=== PATIENT | male | born 1955 | race Caucasian/White ===

== ENCOUNTER 2022-03-29 15:47 | Emergency (ER) | payer MEDICARE, BC, SELFPAY ==
[2022-03-29] VITALS (9 sets, daily range): BP systolic 111–150; BP diastolic 71–99; PULSE 72–84; RESP 12–20; TEMP 36.2; O2SAT 93–96; BMI 26.6
--- NOTE | 2022-03-29 16:07 | CRLHL7_ITS ---
For Patients: As a result of the Century Cures Act, medical imaging exams and procedure reports are released immediately into your electronic medical record. You may view this report before your referring provider. If you have questions, please contact your health care provider. INDICATION: Chest pain. TECHNIQUE: Chest 2 views. COMPARISON: None. FINDINGS: Cardiovascular and mediastinum: Heart size and vasculature are normal in caliber and appearance. Lungs and pleural spaces: The lungs are clear. No pleural effusion or pneumothorax. Bones and soft tissues: Mild multilevel thoracic spondylosis. No acute findings. IMPRESSION: No evidence of an acute pulmonary process. Dictated by Gilmer Hargrove MD @ 03/29/2022 5:05:13 PM (Electronically Signed)
--- NOTE | 2022-03-29 16:25 | ED_ITS ---
HPI - Chest Pain General Chief Complaint: Chest Pain Stated Complaint: BP 140/93, irritation in chest Time Seen by Provider: 03/29/22 15:50 Source: patient Mode of arrival: ambulatory Limitations: no limitations History of Present Illness HPI narrative: Patient is a very nice 62 for old gentleman who 2 days ago developed centralized chest discomfort while shoveling, it took him approximately 15 minutes for this to go way is strive is a center of his chest with no radiation to his arms neck or back, there is no shortness of breath associated with this knee denies any nausea vomiting. He has had a low level feeling of chest discomfort not not quite pressure he describes in his chest region is no previous history of heart disease, no history of elevated cholesterol hypertension he is a lifetime nonsmoker there is no family history of heart disease also. MD complaint: chest pain and chest discomfort Onset (ago): day(s) Timing of current episode: episodic Prior episodes: No Onset: during exertion Pain location: substernal and left chest Pain radiation: none Severity: moderate Quality: heaviness Relieving factors: nothing Exacerbating factors: exertion and other (Snow shoveling) Context: recent illness Treatment prior to arrival: none Risk Factors Coronary artery disease risk factors: none Thoracic aortic dissection risk factors: none Related Data Home Medications Medication Instructions Recorded Confirmed Aspir-81 03/29/22 Allergies Allergy/AdvReac Type Severity Reaction Status Date / Time No Known Drug Allergies Allergy Verified 03/29/22 15:55 Review of Systems Status of ROS Reports: 10 or more systems reviewed and unremarkable except as noted in History and below PFSH PFS Social History Smoking Status: Never smoker Do you use any of these nicotine containing products: None How often do you have a drink containing alcohol: monthly or less How many standard drinks containing alcohol do you have on a typical day: 1 or 2 How often do you have six or more drinks on one occasion: Never AUDIT-C Alcohol total score: 1 Non-prescribed substance use: denies use service: No Exam Narrative Exam Narrative: Patient is seen in room 3 he is in no apparent distress he is fit healthy with a normal BMI able to walk around the room normally follow commands pupils equal round reactive to light his TMs are normal oropharynx normal neck is supple full range of motion carotid upstrokes are equal bilaterally JVP is flat his chest is good air entry bilaterally no wheezing crackles noted no palpable chest pain is noted across his precordium, there is no bruising or masses noted, is S1-S2 are normal there is no S3-S4 clicks murmurs or gallops, his abdomen is soft and scaphoid there is no guarding no organomegaly no tenderness to palpation, moves all extremities independently well normal peripheral pulses no edema noted. Const Vital Signs, click to edit/add: Vital Signs - 24 hr 03/29/22 15:51 03/29/22 16:30 03/29/22 17:00 Temperature 97.2 F L Pulse Rate 76 Pulse Rate [Right Pulse Oximeter] 84 76 Respiratory Rate 18 12 Blood Pressure Blood Pressure [Right Upper Arm] 150/81 H 141/86 H Pulse Oximetry 95 96 93 Oxygen Delivery Method Room Air Room Air 03/29/22 17:05 03/29/22 17:30 03/29/22 17:32 Temperature Pulse Rate 77 78 81 Pulse Rate [Right Pulse Oximeter] Respiratory Rate Blood Pressure 111/94 H 131/95 H Blood Pressure [Right Upper Arm] Pulse Oximetry 94 93 94 Oxygen Delivery Method 03/29/22 17:33 03/29/22 17:00 03/29/22 17:30 Temperature Pulse Rate 74 Pulse Rate [Right Pulse Oximeter] 78 77 Respiratory Rate 14 20 Blood Pressure Blood Pressure [Right Upper Arm] 111/94 H 131/95 H Pulse Oximetry 93 93 94 Oxygen Delivery Method Room Air Room Air 03/29/22 18:00 Temperature Pulse Rate Pulse Rate [Right Pulse Oximeter] 74 Respiratory Rate 17 Blood Pressure Blood Pressure [Right Upper Arm] 116/99 H Pulse Oximetry 94 Oxygen Delivery Method Room Air Documenting provider has reviewed patient's vital signs: yes Course Course Hospital Course: Discussed with the patient, his the heart score is 0, 2nd troponin is negative, D-dimer age adjusted is normal, his really having any chest pain rate now, I think light duty, he would did tell me that he is on 81 mg of aspirin and which I asked him why he said he DrAnder 5 years ago told to take that, so I think taking a daily 325 mg would be more relevant at this time. I will set him up for an outpatient stress echo, he has a doctor at the [facility], working send the results 2, we went over risks benefits and side effects of leaving here, including worsening chest pain and went to seek re-evaluation he was comfortable this plan. Vital Signs Vital signs: Initial Vital Signs Temperature 97.2 F L 03/29/22 15:51 Temperature Source Temporal Artery Scan 03/29/22 15:51 Pulse Rate 84 03/29/22 15:51 Respiratory Rate 18 03/29/22 15:51 Blood Pressure 150/81 H 03/29/22 15:51 Blood Pressure Mean 104 03/29/22 15:51 Blood Pressure Position Sitting 03/29/22 15:51 Pulse Oximetry 95 03/29/22 15:51 Oxygen Delivery Method 03/29/22 15:51 Vital Signs Temperature 97.2 F L 03/29/22 15:51 Pulse Rate 84 03/29/22 15:51 Respiratory Rate 18 03/29/22 15:51 Blood Pressure 150/81 H 03/29/22 15:51 Pulse Oximetry 95 03/29/22 15:51 Oxygen Delivery Method 03/29/22 15:51 Temperature 97.2 F L 03/29/22 15:51 Pulse Rate 74 03/29/22 18:00 Respiratory Rate 17 03/29/22 18:00 Blood Pressure 116/99 H 03/29/22 18:00 Pulse Oximetry 94 03/29/22 18:00 Oxygen Delivery Method 03/29/22 18:00 MDM - Chest Pain MDM Narrative Medical decision making narrative: During the evaluation of this patient I considered multiple differential diagnosis is. The life-threatening differential diagnosis include coronary disease/[place], pulmonary embolism, pneumothorax, pneumonia, and aortic dissection. Other differential diagnosis included but were not limited to pericarditis, myocarditis, chest wall pain, GERD, esophageal rupture, rib fracture contusion, pleurisy, as well as other etiologies. Differential Diagnosis Differential diagnosis: Likely fracture of rib, pneumothorax, stable angina, un stable angina pectoris, atypical chest pain, st elevation myocardial infarction, costochondritis, chest pain and biliary colic Medical Records Data Attestation: I reviewed the patient's medical records. Lab Data Attestation: I reviewed the patient's lab results. Labs: Lab Results 03/29/22 03/29/22 03/29/22 Range/Units 16:07 16:25 16:25 WBC 5.42 (4.50-11.00) K/uL RBC 5.16 (4.30-5.90) m/uL Hgb 15.8 (13.5-17.5) gm/dL Hct 46.4 (37.0-53.0) % MCV 90 (80-100) fL MCH 31 (26-34) pg MCHC 34 (32-36) gm/dL RDW Coeff of Sylvie 12.8 (11.5-15.5) % Plt Count 193 (140-440) K/uL Neut % (Auto) 63.1 (42.0-72.0) % Lymph % (Auto) 26.0 (20-44) % [place] % (Auto) 9.0 (0.0-11.0) % Eos % (Auto) 1.3 (0.0-7.0) % Baso % (Auto) 0.6 (0.0-3.0) % Neut # (Auto) 3.42 (1.7-7.0) K/uL Lymph # (Auto) 1.41 (0.90-2.90) K/uL [place] # (Auto) 0.50 (0.00-0.90) K/UL Eos # (Auto) 0.07 (0.00-0.50) K/uL Baso # (Auto) 0.03 (0.00-0.30) K/uL INR (0.91-1.10) APTT (23-33) Seconds D-Dimer Quant (PE/DVT) Cancelled Sodium (135-149) mmol/L Potassium (3.6-5.1) mmol/L Chloride (96-114) mmol/L Carbon Dioxide (20-32) mmol/L BUN (7-30) mg/dL Creatinine (0.5-1.5) mg/dL Estimated Creat Clear Estimated GFR ml/min Glucose (60-115) mg/dL Calcium (8.4-10.6) mg/dL NT-Pro-B Natriuret Pep SARS-CoV-2 (PCR) Negative SARS-CoV-2 (Negative) Influenza Type A (PCR) Negative PCR FLU A (Negative) Influenza Type B (PCR) Negative PCR FLU B (Negative) RSV (PCR) Negative PCR RSV (Negative) POC Troponin I (0.01-0.04) ng/ml 03/29/22 03/29/22 03/29/22 Range/Units 16:25 16:25 16:25 WBC (4.50-11.00) K/uL RBC (4.30-5.90) m/uL Hgb (13.5-17.5) gm/dL Hct (37.0-53.0) % MCV (80-100) fL MCH (26-34) pg MCHC (32-36) gm/dL RDW Coeff of Sylvie (11.5-15.5) % Plt Count (140-440) K/uL Neut % (Auto) (42.0-72.0) % Lymph % (Auto) (20-44) % [place] % (Auto) (0.0-11.0) % Eos % (Auto) (0.0-7.0) % Baso % (Auto) (0.0-3.0) % Neut # (Auto) (1.7-7.0) K/uL Lymph # (Auto) (0.90-2.90) K/uL [place] # (Auto) (0.00-0.90) K/UL Eos # (Auto) (0.00-0.50) K/uL Baso # (Auto) (0.00-0.30) K/uL INR 0.93 (0.91-1.10) APTT 28 (23-33) Seconds D-Dimer Quant (PE/DVT) 0.59 H Sodium 138 (135-149) mmol/L Potassium 4.0 (3.6-5.1) mmol/L Chloride 108 (96-114) mmol/L Carbon Dioxide 21 (20-32) mmol/L BUN 20 (7-30) mg/dL Creatinine 1.2 (0.5-1.5) mg/dL Estimated Creat Clear 68.26 Estimated GFR 68 ml/min Glucose 103 (60-115) mg/dL Calcium 9.0 (8.4-10.6) mg/dL NT-Pro-B Natriuret Pep Cancelled 24 SARS-CoV-2 (PCR) (Negative) Influenza Type A (PCR) (Negative) Influenza Type B (PCR) (Negative) RSV (PCR) (Negative) POC Troponin I (0.01-0.04) ng/ml 03/29/22 03/29/22 Range/Units 16:25 18:05 WBC (4.50-11.00) K/uL RBC (4.30-5.90) m/uL Hgb (13.5-17.5) gm/dL Hct (37.0-53.0) % MCV (80-100) fL MCH (26-34) pg MCHC (32-36) gm/dL RDW Coeff of Sylvie (11.5-15.5) % Plt Count (140-440) K/uL Neut % (Auto) (42.0-72.0) % Lymph % (Auto) (20-44) % [place] % (Auto) (0.0-11.0) % Eos % (Auto) (0.0-7.0) % Baso % (Auto) (0.0-3.0) % Neut # (Auto) (1.7-7.0) K/uL Lymph # (Auto) (0.90-2.90) K/uL [place] # (Auto) (0.00-0.90) K/UL Eos # (Auto) (0.00-0.50) K/uL Baso # (Auto) (0.00-0.30) K/uL INR (0.91-1.10) APTT (23-33) Seconds D-Dimer Quant (PE/DVT) Sodium (135-149) mmol/L Potassium (3.6-5.1) mmol/L Chloride (96-114) mmol/L Carbon Dioxide (20-32) mmol/L BUN (7-30) mg/dL Creatinine (0.5-1.5) mg/dL Estimated Creat Clear Estimated GFR ml/min Glucose (60-115) mg/dL Calcium (8.4-10.6) mg/dL NT-Pro-B Natriuret Pep SARS-CoV-2 (PCR) (Negative) Influenza Type A (PCR) (Negative) Influenza Type B (PCR) (Negative) RSV (PCR) (Negative) POC Troponin I 0.00 L 0.00 L (0.01-0.04) ng/ml Imaging Data Chest x-ray: Attestation: I have reviewed the pertinent imaging results. My impression: Normal chest xray Radiologist's impression: No acute change ECG Data Attestation: I personally reviewed and interpreted this ECG as follows: ECG interpretation date: 03/29/22 ECG interpretation time: 16:28 Interpretation: EKG shows normal sinus rhythm, no acute ST wave changes, Discharge Plan Discharge Clinical Impression: Chest pain Patient Disposition: Home, Self-Care Condition: Stable Instructions: Chest Pain (DC) Additional Instructions: Home, rest, aspirin 81 mg a day, follow-up stress echo as an outpatient, return here if increasing chest pain shortness of breath or other symptoms. Prescriptions: No Action Aspir-81 Follow Up/Referrals: Provider,Not a Local [Primary Care Provider] - Stand Alone Forms: [employer] Info Instructions
[2022-03-29 16:47] LABS: Basophils Absolute Auto 0.03 K/uL (0.00-0.30); Basophils Percent Auto 0.6 % (0.0-3.0); Eosinophils Absolute Auto 0.07 K/uL (0.00-0.50); Eosinophils Percent Auto 1.3 % (0.0-7.0); Hematocrit 46.4 % (37.0-53.0); Hemoglobin* 15.8 gm/dL (13.5-17.5); Lymphocytes Absolute Auto 1.41 K/uL (0.90-2.90); Mean Corpuscular HGB Conc 34 gm/dL (32-36); Mean Corpuscular Hemoglobin 31 pg (26-34); Mean Corpuscular Volume 90 fL (80-100); Neutrophils Absolute Auto 3.42 K/uL (1.7-7.0); Neutrophils Percent Auto 63.1 % (42.0-72.0); Platelet Count* 193 K/uL (140-440); RDW Coefficient of Variation % 12.8 % (11.5-15.5); Red Blood Count 5.16 m/uL (4.30-5.90); White Blood Count* 5.42 K/uL (4.50-11.00)
[2022-03-29 16:52] LABS: Slide Review Reflex No
[2022-03-29] MEDS: ASPIRIN 81 MG TAB.CHEW 324 MG PO (16:53)
[2022-03-29 17:00] LABS: PCR FLU A Negative PCR FLU A (Negative); PCR FLU B Negative PCR FLU B (Negative); PCR RSV Negative PCR RSV (Negative)
[2022-03-29 17:00] LABS: Chloride* 108 mmol/L (96-114); Sodium* 138 mmol/L (135-149)
[2022-03-29 17:03] LABS: Blood Urea Nitrogen* 20 mg/dL (7-30); Carbon Dioxide* 21 mmol/L (20-32); Creatinine* 1.2 mg/dL (0.5-1.5); Est. Creatinine Clearance* 68.26; Estimated Glomerular Filt Rate 68 ml/min; INR 0.93 (0.91-1.10); Prothrombin Time 13.1 Seconds
[2022-03-29 17:04] LABS: Glucose* 103 mg/dL (60-115); Partial Thromboplastin Time* 28 Seconds (23-33)
[2022-03-29 17:06] LABS: D Dimer Quantitative* 0.59 ug/ml (0.00-0.50)
[2022-03-29 17:19] LABS: NT Pro B Type NatriureticPept* 24 pg/mL
[2022-03-29 17:32] LABS: SARS PCR* Negative SARS-CoV-2 (Negative)
--- NOTE | 2022-03-29 18:53 | ED.GENADULT ---
HPI - General Adult General Chief complaint: Chest Pain Stated complaint: BP 140/93, irritation in chest Time Seen by Provider: 03/29/22 15:50 Source: patient Mode of arrival: ambulatory Limitations: no limitations History of Present Illness HPI narrative: 66-year-old gentleman presents ambulatory to the emergency room for evaluation of chest pain he has had for several J days over the left-sided central region of his chest, it is not made worse by a moving around, exercising, or exerting himself. He has a history of acid reflux in the past and says this feels the same as that. No past cardiac history, no current medications for hypertension diabetes, no past history of this, no nausea vomiting, radiation is pain, no leg swelling noted with this. Related Data Home Medications Medication Instructions Recorded Confirmed Aspir-81 03/29/22 Allergies Allergy/AdvReac Type Severity Reaction Status Date / Time No Known Drug Allergies Allergy Verified 03/29/22 15:55 Review of Systems Status of ROS: Reports: 10 or more systems reviewed and unremarkable except as noted in History and below PFSH PFS Social History Smoking Status: Never smoker Do you use any of these nicotine containing products: None How often do you have a drink containing alcohol: monthly or less How many standard drinks containing alcohol do you have on a typical day: 1 or 2 How often do you have six or more drinks on one occasion: Never AUDIT-C Alcohol total score: 1 Non-prescribed substance use: denies use service: No Exam Narrative: Exam Narrative: Patient is speaking normally, no problem with slurring words, oriented x3. Head eyes ears nose and throat exam show equal pupils, no scleral icterus, extraocular muscles are normal, no facial droop, speech is normal, trachea normal and midline. Thyroid normal midline palpable not enlarged. Chest shows symmetrical rise bilaterally, normal auscultation with no wheezes, no increased work of breathing, no overt bruising or lesions seen, no tenderness is noted on auscultation. Heart sounds normal with no S3-S4 no murmurs clicks or gallops. Abdomen shows no obvious masses or hepatosplenomegaly, no organomegaly, bowel sounds are normal in all quadrants. No tenderness is noted also in all quadrants. Upper and lower extremities show normal power, normal range of motion, pulses are normal, sensations normal, fine motor movements are normal, pelvis is stable to rocking. Cervical spine shows normal range of motion, and palpably not tender. Thoracic spine shows normal range of motion, and palpably not tender, lumbar spine shows no tenderness to palpation percussion and is otherwise normal range of motion. Skin shows no rashes, petechiae or eccymosis. Const: Vital Signs, click to edit/add: Vital Signs - 24 hr 03/29/22 15:51 03/29/22 16:30 03/29/22 17:00 Temperature 97.2 F L Pulse Rate 76 Pulse Rate [Right Pulse Oximeter] 84 76 Respiratory Rate 18 12 Blood Pressure Blood Pressure [Ri ght Upper Arm] 150/81 H 141/86 H Pulse Oximetry 95 96 93 Oxygen Delivery Me thod Room Air Room Air 03/29/22 17:05 03/29/22 17:30 03/29/22 17:32 Temperature Pulse Rate 77 78 81 Pulse Rate [Right Pulse Oximeter] Respiratory Rate Blood Pressure 111/94 H 131/95 H Blood Pressure [Ri ght Upper Arm] Pulse Oximetry 94 93 94 Oxygen Delivery Me thod 03/29/22 17:33 03/29/22 17:00 03/29/22 17:30 Temperature Pulse Rate 74 Pulse Rate [Right Pulse Oximeter] 78 77 Respiratory Rate 14 20 Blood Pressure Blood Pressure [Ri ght Upper Arm] 111/94 H 131/95 H Pulse Oximetry 93 93 94 Oxygen Delivery Me thod Room Air Room Air 03/29/22 18:00 Temperature Pulse Rate Pulse Rate [Right Pulse Oximeter] 74 Respiratory Rate 17 Blood Pressure Blood Pressure [Ri ght Upper Arm] 116/99 H Pulse Oximetry 94 Oxygen Delivery Me thod Room Air Course Course Hospital Course: Discussed with the patient, his the heart score is 0, 2nd troponin is negative, D-dimer age adjusted is normal, his really having any chest pain rate now, I think light duty, he would did tell me that he is on 81 mg of aspirin and which I asked him why he said he DrAnder 5 years ago told to take that, so I think taking a daily 325 mg would be more relevant at this time. I will set him up for an outpatient stress echo, [facility] 2, we went over risks benefits and side effects of leaving here, including worsening chest pain and went to seek re-evaluation he was comfortable this plan. Vital Signs Vital signs: Initial Vital Signs Temperature 97.2 F L 03/29/22 15:51 Temperature Source Temporal Artery Scan 03/29/22 15:51 Pulse Rate 84 03/29/22 15:51 Respiratory Rate 18 03/29/22 15:51 Blood Pressure 150/81 H 03/29/22 15:51 Blood Pressure Mean 104 03/29/22 15:51 Blood Pressure Position Sitting 03/29/22 15:51 Pulse Oximetry 95 03/29/22 15:51 Oxygen Delivery Method 03/29/22 15:51 Vital Signs Temperature 97.2 F L 03/29/22 15:51 Pulse Rate 84 03/29/22 15:51 Respiratory Rate 18 03/29/22 15:51 Blood Pressure 150/81 H 03/29/22 15:51 Pulse Oximetry 95 03/29/22 15:51 Oxygen Delivery Method 03/29/22 15:51 Temperature 97.2 F L 03/29/22 15:51 Pulse Rate 72 03/29/22 18:30 Respiratory Rate 17 03/29/22 18:30 Blood Pressure 118/71 03/29/22 18:30 Pulse Oximetry 94 03/29/22 18:30 Oxygen Delivery Method 03/29/22 18:30 Medical Decision Making MDM Narrative Medical decision making narrative: During the evaluation of this patient I considered multiple differential diagnosis is. The life-threatening differential diagnosis include coronary disease/[place], pulmonary embolism, pneumothorax, pneumonia, and aortic dissection. Other differential diagnosis included but were not limited to pericarditis, myocarditis, chest wall pain, GERD, esophageal rupture, rib fracture contusion, pleurisy, as well as other etiologies. Medical Records Medical records reviewed: Yes I reviewed the patient's medical records Lab Data Lab results reviewed: Yes I reviewed the patient's lab results Lab results narrative: Laboratory tests show negative troponin, given this is been going on for 3-4 days, I am reassured by this finding, is D-dimer using the age adjusted protocol is no also within normal limits. Labs: Lab Results 03/29/22 03/29/22 03/29/22 Range/Units 16:07 16:25 16:25 WBC 5.42 (4.50-11.00) K/uL RBC 5.16 (4.30-5.90) m/uL Hgb 15.8 (13.5-17.5) gm/dL Hct 46.4 (37.0-53.0) % MCV 90 (80-100) fL MCH 31 (26-34) pg MCHC 34 (32-36) gm/dL RDW Coeff of Sylvie 12.8 (11.5-15.5) % Plt Count 193 (140-440) K/uL Neut % (Auto) 63.1 (42.0-72.0) % Lymph % (Auto) 26.0 (20-44) % [place] % (Auto) 9.0 (0.0-11.0) % Eos % (Auto) 1.3 (0.0-7.0) % Baso % (Auto) 0.6 (0.0-3.0) % Neut # (Auto) 3.42 (1.7-7.0) K/uL Lymph # (Auto) 1.41 (0.90-2.90) K/uL [place] # (Auto) 0.50 (0.00-0.90) K/UL Eos # (Auto) 0.07 (0.00-0.50) K/uL Baso # (Auto) 0.03 (0.00-0.30) K/uL INR (0.91-1.10) APTT (23-33) Seconds D-Dimer Quant (PE/DVT) Cancelled Sodium (135-149) mmol/L Potassium (3.6-5.1) mmol/L Chloride (96-114) mmol/L Carbon Dioxide (20-32) mmol/L BUN (7-30) mg/dL Creatinine (0.5-1.5) mg/dL Estimated Creat Clear Estimated GFR ml/min Glucose (60-115) mg/dL Calcium (8.4-10.6) mg/dL NT-Pro-B Natriuret Pep SARS-CoV-2 (PCR) Negative SARS-CoV-2 (Negative) Influenza Type A (PCR) Negative PCR FLU A (Negative) Influenza Type B (PCR) Negative PCR FLU B (Negative) RSV (PCR) Negative PCR RSV (Negative) POC Troponin I (0.01-0.04) ng/ml 03/29/22 03/29/22 03/29/22 Range/Units 16:25 16:25 16:25 WBC (4.50-11.00) K/uL RBC (4.30-5.90) m/uL Hgb (13.5-17.5) gm/dL Hct (37.0-53.0) % MCV (80-100) fL MCH (26-34) pg MCHC (32-36) gm/dL RDW Coeff of Sylvie (11.5-15.5) % Plt Count (140-440) K/uL Neut % (Auto) (42.0-72.0) % Lymph % (Auto) (20-44) % [place] % (Auto) (0.0-11.0) % Eos % (Auto) (0.0-7.0) % Baso % (Auto) (0.0-3.0) % Neut # (Auto) (1.7-7.0) K/uL Lymph # (Auto) (0.90-2.90) K/uL [place] # (Auto) (0.00-0.90) K/UL Eos # (Auto) (0.00-0.50) K/uL Baso # (Auto) (0.00-0.30) K/uL INR 0.93 (0.91-1.10) APTT 28 (23-33) Seconds D-Dimer Quant (PE/DVT) 0.59 H Sodium 138 (135-149) mmol/L Potassium 4.0 (3.6-5.1) mmol/L Chloride 108 (96-114) mmol/L Carbon Dioxide 21 (20-32) mmol/L BUN 20 (7-30) mg/dL Creatinine 1.2 (0.5-1.5) mg/dL Estimated Creat Clear 68.26 Estimated GFR 68 ml/min Glucose 103 (60-115) mg/dL Calcium 9.0 (8.4-10.6) mg/dL NT-Pro-B Natriuret Pep Cancelled 24 SARS-CoV-2 (PCR) (Negative) Influenza Type A (PCR) (Negative) Influenza Type B (PCR) (Negative) RSV (PCR) (Negative) POC Troponin I (0.01-0.04) ng/ml 03/29/22 03/29/22 Range/Units 16:25 18:05 WBC (4.50-11.00) K/uL RBC (4.30-5.90) m/uL Hgb (13.5-17.5) gm/dL Hct (37.0-53.0) % MCV (80-100) fL MCH (26-34) pg MCHC (32-36) gm/dL RDW Coeff of Sylvie (11.5-15.5) % Plt Count (140-440) K/uL Neut % (Auto) (42.0-72.0) % Lymph % (Auto) (20-44) % [place] % (Auto) (0.0-11.0) % Eos % (Auto) (0.0-7.0) % Baso % (Auto) (0.0-3.0) % Neut # (Auto) (1.7-7.0) K/uL Lymph # (Auto) (0.90-2.90) K/uL [place] # (Auto) (0.00-0.90) K/UL Eos # (Auto) (0.00-0.50) K/uL Baso # (Auto) (0.00-0.30) K/uL INR (0.91-1.10) APTT (23-33) Seconds D-Dimer Quant (PE/DVT) Sodium (135-149) mmol/L Potassium (3.6-5.1) mmol/L Chloride (96-114) mmol/L Carbon Dioxide (20-32) mmol/L BUN (7-30) mg/dL Creatinine (0.5-1.5) mg/dL Estimated Creat Clear Estimated GFR ml/min Glucose (60-115) mg/dL Calcium (8.4-10.6) mg/dL NT-Pro-B Natriuret Pep SARS-CoV-2 (PCR) (Negative) Influenza Type A (PCR) (Negative) Influenza Type B (PCR) (Negative) RSV (PCR) (Negative) POC Troponin I 0.00 L 0.00 L (0.01-0.04) ng/ml Imaging Data Chest x-ray: Attestation: I have reviewed the pertinent imaging results. My impression: Chest x-ray shows no acute finding ECG Data Attestation: I personally reviewed and interpreted this ECG as follows: Interpretation: EKG shows no acute findings Discharge Plan Discharge Clinical Impression: Chest pain Patient Disposition: Home, Self-Care Condition: Stable Instructions: Chest Pain (DC) Additional Instructions: Home, rest, aspirin 81 mg a day, follow-up stress echo as an outpatient, return here if increasing chest pain shortness of breath or other symptoms. Prescriptions: No Action Aspir-81 Follow Up/Referrals: Provider,Not a Local [Primary Care Provider] - Stand Alone Forms: [employer] Info Instructions
--- NOTE | 2022-03-29 19:16 | ED.NURSE ---
patient is having tightness in the center of the chest stated rates at 2/10 scale. patient has an order in for a Lexiscan as needs to have left knee replacement and unable to walk on treadmill to get to [employer].
--- NOTE | 2022-05-16 12:19 | ED.NURSE ---
Per ED [facility], patient has been contacted 4 different times (05/03, 05/06, 05/08, to schedule stress test and no response. [facility] [employer] contact Dr. Rojo and Dr. Rojo instructed to get rid of order.
== END 2022-03-29 19:19 | disposition home or self-care (01) ==
PROVIDERS: Emergency Provider Family Medicine
DX: R07.9 Chest pain, unspecified (principal)
CPT/HCPCS: 36415; 71046; 80048; 83880; 84484; 85025; 85379; 85610; 85730; 87502; 87634; 87635; 93005; 99284; 99285; A9270